=== PATIENT | female | born 1990 | race Two or more races ===

== ENCOUNTER 2025-03-14 07:58 | Inpatient (IN) ==
[2025-03-14] MEDS ORDERED: LIDOCAINE 1% LOCAL 20 ML VIAL INFIL PRN (08:16)
[2025-03-14] MEDS ORDERED: ACETAMINOPHEN 500 MG TAB PO PRN (08:16)
[2025-03-14] MEDS ORDERED: CALCIUM CARBONATE 500 MG CHEWABLE TAB PO PRN ×2 (08:16→23:57)
[2025-03-14] MEDS ORDERED: OXYTOCIN 30 UNITS/NSS 30 UNITS/500 ML BAG IV PRN (08:16)
[2025-03-14] MEDS: LACTATED RINGER'S 1,000 ML IV PRN (08:57)
[2025-03-14] MEDS: PENICILLIN GK 6 MU in DEXTROSE 5% 250 ML IV STA (08:59)
[2025-03-14 09:03] LABS: Hematocrit (blood only) 36.1 % (37.0-47.0); Hemoglobin 12.1 g/dl (12.0-16.0); Mean Corpuscular Hemoglobin 28.9 pg (25.0-34.0); Mean Corpuscular Volume 86.4 fL (80.0-100.0); Platelet Count 269 K/uL (130-400); RDW Standard Deviation 47.0 fL (36.4-46.3); Red Blood Count 4.18 M/uL (4.20-5.40); White Blood Count 15.45 K/ul (4.8-10.8)
[2025-03-14] MEDS: OXYTOCIN 30 UNITS/NSS 30 UNITS/500 ML BAG IV PRN (10:00)
--- NOTE | 2025-03-14 10:29 | History & Physical Report ---
Date of Service March 14, 2025 Assessment & Plan (1) Encounter for induction of labor: Plan: Patient appears stable. Ordered Pitocin to begin induction. Will continue to monitor. (2) Group B streptococcal infection during : Plan: Patient stated she was positive with GBS. Ordered penicillin. Admission and Anticipated Discharge Date Admission Date: March 14, 2025 History of Present Illness Chief Complaint: Induction of Labor Primary Care Provider: Lilia Petty MD Patient presents into the hospital for induction of labor. 34 yo at 40w5d admitted for IOL for postdates. Patient states that last night after her folate bulb was taken out, she was having contractions with 4-5 minute intervals but went away. Today she feels like she is having contractions sometimes. Patient admits to movement. Patient has not had any fluid loss nor bloody show. Patient states she has been having regular care Denies fever, chills, sweats, Headache, CP, SOB, dysuria, breast pain. GBS pos, RH+ Allergies Allergy/AdvReac Type Severity Reaction Status Date / Time No Known Allergies Allergy Verified 03/13/25 11:12 Home Medications Medication Instructions Recorded Confirmed Type ferrous sulfate 325 mg (65 mg 325 mg PO DAILY 04/07/24 03/14/25 History iron) tablet (Feosol) 21-iron fu-folic acid 1 tab PO DAILY 08/15/24 03/13/25 History [ Complete] Patient History Medical History (Updated 03/14/25 @ 10:26 by Epi Sanchez DO) Fibroadenoma of breast L Anemia History of chicken pox Dizzy spells Atypical chest pain Surgical History Status post surgery cyst removed from under armpit S/P breast biopsy L breast fibroadenoma Family History Mother Arthritis Hypertension Denies family history of Ovarian cancer Breast cancer Colorectal cancer Social History Smoking Status: Never smoker Do You Dip or Chew Tobacco: No; Hx Alcohol Use: No Hx Substance Use: No Preferred Language: Setswana Communication Ability: Effective Coin Machine Operator Required: No Beliefs That Will Affect Care: None marital status: marital status details: Krissy (27) [phone] Current Living Situation: Spouse Current Living Situation Comment: lives with spouse current occupational status: student current occupation: grad student [employer] Other Information That Helps Us Care for You: No Feels Safe at Home: Yes Safety Concerns: Feels Safe At This Time Assistive Devices: None Review of Systems as per Subjective HPI Physical Exam Constitutional: WD/WN, vitals as above Respiratory: normal respiratory effort, lungs clear to auscultation Cardiovascular: Rate/Rhythm: regular rate and regular rhythm Heart Sounds: normal S1 and normal S2; no murmur Gastrointestinal (Abdomen): Percussion/Palpation: abdomen nontender Skin: no rashes, warm and dry Psychiatric: Eye Contact: good eye contact Speech: normal rate/rhythm/volume of speech Thought Process: linear/logical thought process Results & Data Vital Signs (Past 12 Hours) Vital Signs Temp Pulse Resp BP 03/14/25 10:02 97 H 03/14/25 10:02 127/73 03/14/25 08:15 36.6 C 112 H 20 128/71 03/14/25 08:11 36.6 C 112 H 20 128/71 Laboratory Results 03/14/25 Range/Units 08:44 WBC 15.45 H (4.8-10.8) K/ul RBC 4.18 L (4.20-5.40) M/uL Hgb 12.1 (12.0-16.0) g/dl Hct 36.1 L (37.0-47.0) % MCV 86.4 (80.0-100.0) fL MCH 28.9 (25.0-34.0) pg MCHC 33.5 (32.0-36.0) g/dL RDW Std Deviation 47.0 H (36.4-46.3) fL RDW Coeff of Alfredo 14.8 H (11.5-14.5) % Plt Count 269 (130-400) K/uL MPV 9.6 (9.4-12.4) fL Treponema pallidum Ab Negative (Negative) Medications Administered Pitocin protocol. Penicillin Supervising Physician Co-Signing Physician Notes Resident Physician Supervision Note: I was present with Dr. Sanchez during the history and exam. I discussed the case with the resident and agree with the findings and plan as documented in the note. Any exceptions or clarifications are listed here: [None] Documented By: Raissa Hernandez, DO
[2025-03-14] MEDS: PENICILLIN GK 3 MU in DEXTROSE 5% 100 ML IV PRN (13:01)
[2025-03-14] MEDS ORDERED: ROPIVACAINE 0.5% PF 5 MG/ML 20 ML VIAL EPI PRN (17:34)
[2025-03-14] MEDS ORDERED: BUPIVACAINE 0.25% PF 30 ML VIAL EPI PRN (17:34)
[2025-03-14] MEDS ORDERED: NALBUPHINE HCL INJ 10 MG/ML AMP IV PRN ×2 (17:34→23:07)
[2025-03-14] MEDS ORDERED: BUPIVACAINE 0.25% PF 30 ML VIAL EPI STA (17:34)
[2025-03-14] MEDS ORDERED: LIDOCAINE 2% MPF LOCAL 5 ML VIAL EPI PRN (17:34)
[2025-03-14] MEDS ORDERED: diphenhydrAMINE 50 MG/ML VIAL IV PRN ×2 (17:34→23:07)
[2025-03-14] MEDS ORDERED: NALOXONE HCL 0.4 MG/1 ML VIAL/CARP IV PRN ×2 (17:34→23:07)
[2025-03-14] MEDS ORDERED: fentANYL 2 MCG/ML BUPIVacaine 0.125%-NSS 100ML BAG EPI PRN (17:34)
[2025-03-14] MEDS ORDERED: LIDOCAINE 2%/EPINEPHRINE 1:200,000 20 ML PF EPI STA (17:34)
[2025-03-14] MEDS ORDERED: NALOXONE HCL 1 MG in SODIUM CHLORIDE 0.9% 1,000 ML IV PRN ×2 (17:34→23:07)
[2025-03-14] MEDS ORDERED: SODIUM CHLORIDE 0.9% PF INJ 10 ML VIAL EPI STA (17:34)
[2025-03-14] MEDS ORDERED: SODIUM CHLORIDE 0.9% PF INJ 10 ML VIAL EPI PRN (17:34)
--- NOTE | 2025-03-14 17:42 | Anesthesiology Consultation ---
Date of Service March 14, 2025 Assessment & Plan Chart Review Chart Review: Patient NOT seen in Pre Admission Testing and Acceptable Risk for Labor Epidural Consults Requested none ASA ASA2 Proposed Anesthesia Anesthesia Type: Labor Epidural Risk / Benefits Reviewed With: PT / POA / Parent / Guardian, Accepts Plan and Informed Consent Obtained History Height/Weight Height: 5 ft 5 in Weight: 91.172 kg Allergies Allergy/AdvReac Type Severity Reaction Status Date / Time No Known Allergies Allergy Verified 03/13/25 11:12 Medications Home Medications Medication Instructions Recorded Confirmed Last Taken ferrous sulfate 325 mg (65 mg 325 mg PO DAILY 04/07/24 03/14/25 03/12/25 12:00 iron) tablet (Feosol) 21-iron fu-folic acid 1 tab PO DAILY 08/15/24 03/13/25 03/12/25 23:00 [ Complete] Active Medications Generic Name Dose Route Start Last Admin Trade Name Freq PRN Reason Stop Dose Admin Lactated Ringer's 1,000 mls @ 125 mls/hr 03/14/25 08:16 03/14/25 17:44 Lr IV 03/16/25 08:15 999 mls/hr .Q8H PRN Titration L&D Protocol Protocol Penicillin G Potassium 3 mu/ 106 mls @ 100 mls/hr 03/14/25 11:17 03/14/25 17:44 Dextrose IV 03/24/25 11:16 100 mls/hr Q4H PRN Administration GBS(+) Until Delivery Oxytocin 30 units in 500 mls @ 11 mls/hr 03/14/25 09:35 03/14/25 12:30 Pitocin 30 Units/Nss IV 03/16/25 09:34 0.66 units/hr .Q24H PRN 11 mls/hr Labor Induction/Augmentation Titration Protocol 0.66 UNITS/HR NPO Date Last Intake of Fluids: 03/14/25 Time Last Intake of Fluids: 17:00 Date Last Intake of Solids: 03/14/25 Time Last Intake of Solids: 06:30 Past Medical History Medical History Fibroadenoma of breast L Anemia History of chicken pox Dizzy spells Atypical chest pain Exercise / Class Metabolic Activity 1 > 8 Run/Swim/Ski/Tennis Past Family History Family History Mother Arthritis Hypertension Denies family history of Ovarian cancer Breast cancer Colorectal cancer Past Surgical History Surgical History Status post surgery cyst removed from under armpit S/P breast biopsy L breast fibroadenoma Past Anesthesia History No Hx of Anesthesia Complications and No Family Hx of Anesthesia Complications History of PONV No Hx of PONV and No Hx of Motion Sickness Social History Smoking Status: Never smoker Do You Dip or Chew Tobacco: No Hx Alcohol Use: No Hx Substance Use: No Review of Systems ROS Unobtainable: All systems reviewed & are unremarkable except as noted in HPI & below Physical Exam Vital Signs Last Vital Signs Temp 37.0 C 03/14/25 15:22 Pulse 82 03/14/25 17:37 Resp 20 03/14/25 15:22 BP 135/99 03/14/25 17:37 Pulse Ox 100 03/14/25 17:37 ENMT Mouth: no TMJ abnormality Thyromental Distance: > or= 3.5 Finger Breadths Mallampati Class: II Neck normal visual inspection and trachea midline; neck extension not limited Respiratory normal respiratory effort Auscultation: lungs clear to auscultation bilaterally Cardiovascular Rate/Rhythm: regular rate and regular rhythm Heart Sounds: no murmur Musculoskeletal Spine: normal cervical ROM Extremities: full ROM of extremities Neurologic moves all extremities Psychiatric Orientation: alert and oriented x 3 Testing Laboratory Results 03/14/25 08:44
[2025-03-14] MEDS: BUPIVACAINE 0.25% PF 30 ML VIAL ONE (18:00)
[2025-03-14] MEDS: LIDOCAINE 2%/EPINEPHRINE 1:200,000 20 ML PF ONE (18:00)
[2025-03-14] MEDS: fentANYL 2 MCG/ML BUPIVacaine 0.125%-NSS 100ML BAG ONE (18:02)
[2025-03-14] MEDS: ONDANSETRON INJ 2 MG/ML 2 ML VIAL IV PRN (18:47)
[2025-03-14] MEDS: SODIUM CHLORIDE 0.9% PF INJ 10 ML VIAL ONE (18:50)
--- NOTE | 2025-03-14 22:00 | Labor Progress Brief Note ---
Date of Service March 14, 2025 Subjective Patient continued pitocin Assessment & Plan Admission and Anticipated Discharge Date Admission Date: March 14, 2025 Results & Data Vital Signs (Past 12 Hours) Vital Signs Temp Pulse Resp BP Pulse Ox O2 Del Method 03/14/25 21:57 100 03/14/25 21:57 104 H 03/14/25 21:52 100 03/14/25 21:52 106 H 03/14/25 21:47 98 03/14/25 21:47 104 H 03/14/25 21:42 100 03/14/25 21:42 107 H 03/14/25 21:37 100 03/14/25 21:37 105 H 03/14/25 21:37 99 H 03/14/25 21:37 113/65 03/14/25 21:32 98 03/14/25 21:32 104 H 03/14/25 21:27 99 03/14/25 21:27 116 H 03/14/25 21:22 98 03/14/25 21:22 92 H 03/14/25 21:17 99 03/14/25 21:17 95 H 03/14/25 21:12 16 03/14/25 21:12 37.0 C 16 03/14/25 21:12 98 03/14/25 21:12 105 H 03/14/25 21:07 100 03/14/25 21:07 100 H 03/14/25 21:07 122/60 03/14/25 21:02 98 03/14/25 21:02 96 H 03/14/25 20:57 99 03/14/25 20:57 104 H 03/14/25 20:52 100 03/14/25 20:52 99 H 03/14/25 20:52 98 H 03/14/25 20:52 120/69 03/14/25 20:47 100 03/14/25 20:47 108 H 03/14/25 20:42 100 03/14/25 20:42 113 H 03/14/25 20:38 98 H 03/14/25 20:38 116/64 03/14/25 20:37 100 03/14/25 20:37 99 H 03/14/25 20:32 100 03/14/25 20:32 88 03/14/25 20:27 100 03/14/25 20:27 90 03/14/25 20:23 92 H 03/14/25 20:23 112/64 03/14/25 20:22 100 03/14/25 20:22 85 03/14/25 20:17 100 03/14/25 20:17 88 03/14/25 20:15 90 03/14/25 20:15 107 H 03/14/25 20:12 99 03/14/25 20:12 93 H 03/14/25 20:09 108 H 03/14/25 20:09 122/89 03/14/25 20:07 100 03/14/25 20:07 112 H 03/14/25 20:02 100 03/14/25 20:02 98 H 03/14/25 19:57 100 03/14/25 19:57 105 H 03/14/25 19:52 100 03/14/25 19:52 106 H 03/14/25 19:52 100 H 03/14/25 19:52 122/61 03/14/25 19:47 100 03/14/25 19:47 99 H 03/14/25 19:42 99 03/14/25 19:42 95 H 03/14/25 19:37 99 03/14/25 19:37 86 03/14/25 19:37 86 03/14/25 19:37 125/64 03/14/25 19:32 100 03/14/25 19:32 89 03/14/25 19:27 98 03/14/25 19:27 98 H 03/14/25 19:22 100 03/14/25 19:22 93 H 03/14/25 19:22 119/58 L 03/14/25 19:17 99 03/14/25 19:17 90 03/14/25 19:15 Room Air 03/14/25 19:12 100 03/14/25 19:12 100 H 03/14/25 19:10 18 03/14/25 19:10 36.7 C 18 03/14/25 19:07 100 03/14/25 19:07 90 03/14/25 19:06 97 H 03/14/25 19:06 126/64 03/14/25 19:02 100 03/14/25 19:02 99 H 03/14/25 19:02 119/61 03/14/25 18:58 82 03/14/25 18:58 125/58 L 03/14/25 18:57 100 03/14/25 18:57 85 03/14/25 18:54 86 03/14/25 18:54 133/60 03/14/25 18:52 99 03/14/25 18:52 99 H 03/14/25 18:51 106 H 03/14/25 18:51 91/51 L 03/14/25 18:49 90 03/14/25 18:49 107/51 L 03/14/25 18:47 100 03/14/25 18:47 92 H 03/14/25 18:46 85 03/14/25 18:46 115/55 L 03/14/25 18:45 99 H 03/14/25 18:45 102/56 L 03/14/25 18:43 103 H 03/14/25 18:43 97/53 L 03/14/25 18:42 100 03/14/25 18:42 101 H 03/14/25 18:41 108 H 03/14/25 18:41 93/50 L 03/14/25 18:40 20 03/14/25 18:40 36.8 C 20 03/14/25 18:39 118 H 03/14/25 18:39 100/54 L 03/14/25 18:37 100 03/14/25 18:37 104 H 03/14/25 18:37 106 H 03/14/25 18:37 103/54 L 03/14/25 18:35 75 03/14/25 18:35 109/59 L 03/14/25 18:33 88 03/14/25 18:33 95/55 L 03/14/25 18:32 100 03/14/25 18:32 90 03/14/25 18:31 87 03/14/25 18:31 105/55 L 03/14/25 18:29 95 H 03/14/25 18:29 95/49 L 03/14/25 18:27 100 03/14/25 18:27 98 H 03/14/25 18:27 93 H 03/14/25 18:27 96/50 L 03/14/25 18:25 121 H 03/14/25 18:25 92/50 L 03/14/25 18:24 113 H 03/14/25 18:24 107/54 L 03/14/25 18:22 100 03/14/25 18:22 95 H 03/14/25 18:22 120/62 03/14/25 18:20 94 H 03/14/25 18:20 82/43 L 03/14/25 18:19 86 03/14/25 18:19 79/41 L 03/14/25 18:18 82 03/14/25 18:18 78/41 L 03/14/25 18:17 100 03/14/25 18:17 83 03/14/25 18:14 84 03/14/25 18:14 94/52 L 03/14/25 18:13 88 03/14/25 18:13 98/49 L 03/14/25 18:12 100 03/14/25 18:12 86 03/14/25 18:12 104/51 L 03/14/25 18:08 94 H 03/14/25 18:08 102/47 L 03/14/25 18:07 100 03/14/25 18:07 93 H 03/14/25 18:07 96 H 03/14/25 18:07 102/55 L 03/14/25 18:05 94 H 03/14/25 18:05 106/55 L 03/14/25 18:03 107 H 03/14/25 18:03 110/54 L 03/14/25 18:02 100 03/14/25 18:02 104 H 03/14/25 18:01 93 H 03/14/25 18:01 129/67 03/14/25 17:59 96 H 03/14/25 17:59 137/65 03/14/25 17:57 100 03/14/25 17:57 100 H 03/14/25 17:57 100 H 03/14/25 17:57 136/81 03/14/25 17:55 90 03/14/25 17:55 134/84 03/14/25 17:52 100 03/14/25 17:52 88 03/14/25 17:47 100 03/14/25 17:47 87 03/14/25 17:42 100 03/14/25 17:42 88 03/14/25 17:37 100 03/14/25 17:37 82 03/14/25 17:37 135/99 03/14/25 16:26 82 03/14/25 16:26 130/75 03/14/25 15:22 20 03/14/25 15:22 37.0 C 20 03/14/25 15:22 78 03/14/25 15:22 134/73 03/14/25 13:58 85 03/14/25 13:58 119/74 03/14/25 13:00 90 03/14/25 13:00 122/74 03/14/25 12:03 89 03/14/25 12:03 118/70 03/14/25 11:18 85 03/14/25 11:18 138/65 03/14/25 10:02 97 H 03/14/25 10:02 127/73 Coding
--- NOTE | 2025-03-14 22:04 | History & Physical Bridge Note ---
Date of Service March 14, 2025 History & Physical Bridge Note I have examined the patient, reviewed the History & Physical and in the interval since the performance of the History & Physical I have noted the following changes of clinical significance: Patient continued pitocin up to 17, Arom clear fluid, rec'd epidural, continued pitocin. Then needed to stop pitocin d/t tachycardia, minimal variability. No cervical change since this morning. Discussed with patient - remote from delivery, no cervical change throughout the day, and now intolerance to labor - would advise proceed with section. She is agreeable.
[2025-03-14] MEDS ORDERED: DEXAMETHASONE SOD INJ 4 MG/ML VIAL ONE (22:09)
[2025-03-14] MEDS ORDERED: ONDANSETRON INJ 2 MG/ML 2 ML VIAL ONE (22:09)
[2025-03-14] MEDS ORDERED: PHENYLEPHRINE HCL 25 MG/250 ML NSS IV ONE (22:09)
[2025-03-14] MEDS ORDERED: LIDOCAINE 2%/EPINEPHRINE 1:200,000 20 ML PF ONE (22:09)
[2025-03-14] MEDS ORDERED: METOCLOPRAMIDE HCL INJ 5 MG/ML 2 ML VIAL ONE (22:15)
--- NOTE | 2025-03-14 22:22 | Communication Note ---
Date of Service: March 14, 2025 c.s called for intolerance of labor. epidural in place and working well. Will dose epidural. ASA2E
[2025-03-14] MEDS ORDERED: MoRPHine SULFATE PF 1 MG/ML 10 ML AMP/VIAL ONE (22:27)
[2025-03-14] MEDS ORDERED: OXYTOCIN 10 UNITS/ML VIAL ONE (22:28)
[2025-03-14] MEDS: CITRIC ACID/SODIUM CITRATE 15 ML UDC PO ONE (22:31)
[2025-03-14] MEDS: AZITHROMYCIN 500 MG/255 ML BAG IV ONE (22:35)
[2025-03-14] MEDS ORDERED: DROPERIDOL 5 MG/2 ML VIAL IV PRN (23:07)
[2025-03-14] MEDS ORDERED: ONDANSETRON INJ 2 MG/ML 2 ML VIAL IV PRN (23:07)
[2025-03-14] MEDS ORDERED: NALOXONE HCL 0.08 MG in SYRINGE 1.8 ML IV PRN (23:07)
[2025-03-14] MEDS ORDERED: HYDROmorphone INJ 0.5 MG/0.5 ML SYR IV PRN (23:07)
[2025-03-14] MEDS ORDERED: METOCLOPRAMIDE HCL 20 MG in SODIUM CHLORIDE 0.9% 50 ML IV PRN (23:07)
[2025-03-14] MEDS ORDERED: PROMETHAZINE 6.25 MG/50.25 ML BAG IV PRN (23:07)
[2025-03-14] MEDS ORDERED: MoRPHine SULFATE PF 1 MG/ML 10 ML AMP/VIAL INT SPINAL ONE (23:07)
[2025-03-14] MEDS ORDERED: MEPERIDINE HCL 25 MG/ML CARP/VIAL IV PRN (23:07)
[2025-03-14] MEDS ORDERED: LACTATED RINGER'S 500 ML IV PRN (23:07)
[2025-03-14] MEDS ORDERED: NO NARCOTICS OR SEDATIVES SCH (23:15)
[2025-03-14] MEDS ORDERED: SODIUM CHLORIDE 0.9% 1,000 ML IV SCH (23:15)
[2025-03-14] MEDS ORDERED: DC INTRASPINAL MORPHINE SCH (23:15)
--- NOTE | 2025-03-14 23:51 | Operative Report ---
Post Operative Report Pre & Post Diagnosis Operation Date: 03/14/25 22:15 Pre: Postdates induction of labor, intolerance to labor and failure to progress Post: same I identified the patient and participated in the time-out.: Yes Procedure Operation Date: 03/14/25 22:15 Actual Procedures p Primary Low Transverse Section in LD@ 2259 - Raissa Hernandez DO Surgeon Raissa Hernandez, Chemical Preparer R Joni RN Quantitative Blood Loss (QBL) 370 Findings Consistent with Post-Op Diagnosis Viable female , Apgars 8/9. Weight 7#15oz. Normal appearing uterus, tubes, ovaries. Specimens placenta, cord blood, cord gas Drains moise, clear yellow Anesthesia Type Labor Epidural Complications none Disposition Accompanied Patient To Recovery: Yes Disposition: L&D Indications 34yo @ 40 5/7, IOL for postdates, developed tachycardia and minimal variability, no progression beyond 5cm dilation Description of Procedure The patient was seen in her labor and delivery room, risks benefits and alternatives to surgery were reviewed. Informed consent obtained. Questions were answered. She was taken to the operating room, spinal anesthesia was administered. She was then prepared and draped in the usual sterile fashion in the supine position with a leftward tilt. Timeout was confirmed. A Pfannenstiel skin incision was made with a scalpel, and carried through to the underlying layer of fascia. Fascia was nicked at midline, and this incision was extended bilaterally. The superior aspect of the fascial incision was grasped with Marko clamps x2, elevated off the underlying rectus abdominis muscles, and dissected sharply and bluntly. In similar fashion, the inferior aspect of the fascial incision was dissected. The rectus abdominis muscles were , and the peritoneum was entered bluntly digitally. This was extended bilaterally. The bladder flap was taken down carefully using Metzenbaum scissors. Using a new scalpel, a low transverse uterine incision was created. No fluid noted. The was delivered from a cephalic presentation. The head delivered, followed by shoulders and body. Spontaneous cry on the field. The cord was doubly clamped and cut, and the was handed off to the waiting assistant media buyer. A segment was retained for cord gases. Cord blood was obtained. The placenta was delivered spontaneously intact. The uterus was exteriorized, and cleared of all clots and debris. The hysterotomy incision was reapproximated using 0 Vicryl in a running locked stitch. A second layer of the same suture was used to imbricate the incision. Posterior uterus was evaluated and normal. The uterus was returned to the abdomen, and gutters were cleared of clots and debris. Excellent hemostasis was observed. The fascial incision was reapproximated using 0 Vicryl in a running stitch. The subcutaneous tissue was irrigated, and reapproximated using 2-0 plain gut in a running stitch. The skin was reapproximated using 4-0 Vicryl in a running subcuticular stitch. Steri-Strips and a bandage were applied. The patient tolerated the procedure well, and will be taken to the recovery area in stable and good condition. I attest to the content of the Intraoperative Record and any orders documented therein. Any exceptions are noted below. OB Procedure Charges 23601
[2025-03-14] MEDS ORDERED: SENNA 8.6 MG TAB PO PRN (23:57)
[2025-03-14] MEDS ORDERED: HYDROCORTISONE ACETATE 25 MG SUPP PR PRN (23:57)
[2025-03-14] MEDS ORDERED: BENZOCAINE 20% SPRY 85 APPLN/85 GM CAN EXT PRN (23:57)
[2025-03-14] MEDS ORDERED: MAGNESIUM HYDROXIDE SUSP 30 ML UDC PO PRN (23:57)
--- NOTE | 2025-03-15 00:04 | Anesthesia Procedure Note ---
Date of Service March 15, 2025 Anesthesia Post Epidural Note Vital Signs Vital Signs: Temp Pulse Resp BP Pulse Ox O2 Del Method 37.0 C 118 H 16 126/59 L 99 Room Air 03/14/25 21:12 03/14/25 23:59 03/14/25 21:12 03/14/25 23:55 03/14/25 23:59 03/14/25 19:15 Notes Mental Status: alert / awake / arousable and participated in evaluation Nausea / Vomiting: adequately controlled Pain: adequately controlled Airway Patency, RR, SpO2: stable & adequate BP & HR: stable & adequate Hydration State: stable & adequate Neuraxial Anesthesia: was administered and sensory block is resolving Anesthetic Complications: no major complications apparent Epidural: Removed without complications and With tip intact
--- NOTE | 2025-03-15 00:04 | Anesthesiology Progress Note ---
Date of Service March 15, 2025 Anesthesia Post Procedure Vital Signs Vital Signs: Temp Pulse Resp BP Pulse Ox O2 Del Method 03/14/25 23:59 99 03/14/25 23:59 118 H 03/14/25 23:55 103 H 03/14/25 23:55 126/59 L 03/14/25 23:54 100 03/14/25 23:54 101 H 03/14/25 23:49 99 03/14/25 23:49 104 H 03/14/25 23:45 105 H 03/14/25 23:45 116/63 03/14/25 23:44 100 03/14/25 23:44 107 H 03/14/25 22:42 126 H 03/14/25 22:42 122/86 03/14/25 22:32 100 03/14/25 22:32 109 H 03/14/25 22:27 100 03/14/25 22:27 99 H 03/14/25 22:23 102 H 03/14/25 22:23 116/75 03/14/25 22:22 100 03/14/25 22:22 101 H 03/14/25 22:17 100 03/14/25 22:17 104 H 03/14/25 22:12 100 03/14/25 22:12 106 H 03/14/25 22:07 100 03/14/25 22:07 108 H 03/14/25 22:07 100 H 03/14/25 22:07 127/63 03/14/25 22:02 100 03/14/25 22:02 102 H 03/14/25 21:57 100 03/14/25 21:57 104 H 03/14/25 21:52 100 03/14/25 21:52 106 H 03/14/25 21:47 98 03/14/25 21:47 104 H 03/14/25 21:42 100 03/14/25 21:42 107 H 03/14/25 21:37 100 03/14/25 21:37 105 H 03/14/25 21:37 99 H 03/14/25 21:37 113/65 03/14/25 21:32 98 03/14/25 21:32 104 H 03/14/25 21:27 99 03/14/25 21:27 116 H 03/14/25 21:22 98 03/14/25 21:22 92 H 03/14/25 21:17 99 03/14/25 21:17 95 H 03/14/25 21:12 16 03/14/25 21:12 37.0 C 16 03/14/25 21:12 98 03/14/25 21:12 105 H 03/14/25 21:07 100 03/14/25 21:07 100 H 03/14/25 21:07 122/60 03/14/25 21:02 98 03/14/25 21:02 96 H 03/14/25 20:57 99 03/14/25 20:57 104 H 03/14/25 20:52 100 03/14/25 20:52 99 H 03/14/25 20:52 98 H 03/14/25 20:52 120/69 03/14/25 20:47 100 03/14/25 20:47 108 H 03/14/25 20:42 100 03/14/25 20:42 113 H 03/14/25 20:38 98 H 03/14/25 20:38 116/64 03/14/25 20:37 100 03/14/25 20:37 99 H 03/14/25 20:32 100 03/14/25 20:32 88 03/14/25 20:27 100 03/14/25 20:27 90 03/14/25 20:23 92 H 03/14/25 20:23 112/64 03/14/25 20:22 100 03/14/25 20:22 85 03/14/25 20:17 100 03/14/25 20:17 88 03/14/25 20:15 90 03/14/25 20:15 107 H 03/14/25 20:12 99 03/14/25 20:12 93 H 03/14/25 20:09 108 H 03/14/25 20:09 122/89 03/14/25 20:07 100 03/14/25 20:07 112 H 03/14/25 20:02 100 03/14/25 20:02 98 H 03/14/25 19:57 100 03/14/25 19:57 105 H 03/14/25 19:52 100 03/14/25 19:52 106 H 03/14/25 19:52 100 H 03/14/25 19:52 122/61 08/05/25 19:47 100 03/14/25 19:47 99 H 03/14/25 19:42 99 03/14/25 19:42 95 H 03/14/25 19:37 99 03/14/25 19:37 86 03/14/25 19:37 86 03/14/25 19:37 125/64 03/14/25 19:32 100 03/14/25 19:32 89 03/14/25 19:27 98 03/14/25 19:27 98 H 03/14/25 19:22 100 03/14/25 19:22 93 H 03/14/25 19:22 119/58 L 03/14/25 19:17 99 03/14/25 19:17 90 03/14/25 19:15 Room Air 03/14/25 19:12 100 03/14/25 19:12 100 H 03/14/25 19:10 18 03/14/25 19:10 36.7 C 18 03/14/25 19:07 100 03/14/25 19:07 90 03/14/25 19:06 97 H 03/14/25 19:06 126/64 03/14/25 19:02 100 03/14/25 19:02 99 H 03/14/25 19:02 119/61 03/14/25 18:58 82 03/14/25 18:58 125/58 L 03/14/25 18:57 100 03/14/25 18:57 85 03/14/25 18:54 86 03/14/25 18:54 133/60 03/14/25 18:52 99 03/14/25 18:52 99 H 03/14/25 18:51 106 H 03/14/25 18:51 91/51 L 03/14/25 18:49 90 03/14/25 18:49 107/51 L 03/14/25 18:47 100 03/14/25 18:47 92 H 03/14/25 18:46 85 03/14/25 18:46 115/55 L 03/14/25 18:45 99 H 03/14/25 18:45 102/56 L 03/14/25 18:43 103 H 03/14/25 18:43 97/53 L 03/14/25 18:42 100 03/14/25 18:42 101 H 03/14/25 18:41 108 H 03/14/25 18:41 93/50 L 03/14/25 18:40 20 03/14/25 18:40 36.8 C 20 03/14/25 18:39 118 H 03/14/25 18:39 100/54 L 03/14/25 18:37 100 03/14/25 18:37 104 H 03/14/25 18:37 106 H 03/14/25 18:37 103/54 L 03/14/25 18:35 75 03/14/25 18:35 109/59 L 03/14/25 18:33 88 03/14/25 18:33 95/55 L 03/14/25 18:32 100 03/14/25 18:32 90 03/14/25 18:31 87 03/14/25 18:31 105/55 L 03/14/25 18:29 95 H 03/14/25 18:29 95/49 L 03/14/25 18:27 100 03/14/25 18:27 98 H 03/14/25 18:27 93 H 03/14/25 18:27 96/50 L 03/14/25 18:25 121 H 03/14/25 18:25 92/50 L 03/14/25 18:24 113 H 03/14/25 18:24 107/54 L 03/14/25 18:22 100 03/14/25 18:22 95 H 03/14/25 18:22 120/62 03/14/25 18:20 94 H 03/14/25 18:20 82/43 L 03/14/25 18:19 86 03/14/25 18:19 79/41 L 03/14/25 18:18 82 03/14/25 18:18 78/41 L 03/14/25 18:17 100 03/14/25 18:17 83 03/14/25 18:14 84 03/14/25 18:14 94/52 L 03/14/25 18:13 88 03/14/25 18:13 98/49 L 03/14/25 18:12 100 03/14/25 18:12 86 03/14/25 18:12 104/51 L 03/14/25 18:08 94 H 03/14/25 18:08 102/47 L 03/14/25 18:07 100 03/14/25 18:07 93 H 03/14/25 18:07 96 H 03/14/25 18:07 102/55 L 03/14/25 18:05 94 H 03/14/25 18:05 106/55 L 03/14/25 18:03 107 H 03/14/25 18:03 110/54 L 03/14/25 18:02 100 03/14/25 18:02 104 H 03/14/25 18:01 93 H 03/14/25 18:01 129/67 03/14/25 17:59 96 H 03/14/25 17:59 137/65 03/14/25 17:57 100 03/14/25 17:57 100 H 03/14/25 17:57 100 H 03/14/25 17:57 136/81 03/14/25 17:55 90 03/14/25 17:55 134/84 03/14/25 17:52 100 03/14/25 17:52 88 03/14/25 17:47 100 03/14/25 17:47 87 03/14/25 17:42 100 03/14/25 17:42 88 03/14/25 17:37 100 03/14/25 17:37 82 03/14/25 17:37 135/99 03/14/25 16:26 82 03/14/25 16:26 130/75 03/14/25 15:22 20 03/14/25 15:22 37.0 C 20 03/14/25 15:22 78 03/14/25 15:22 134/73 03/14/25 13:58 85 03/14/25 13:58 119/74 03/14/25 13:00 90 03/14/25 13:00 122/74 03/14/25 12:03 89 03/14/25 12:03 118/70 03/14/25 11:18 85 03/14/25 11:18 138/65 03/14/25 10:02 97 H 03/14/25 10:02 127/73 03/14/25 08:15 36.6 C 112 H 20 128/71 03/14/25 08:11 36.6 C 112 H 20 128/71 Transfer of Care Handoff Completed per policy Notes Mental Status: alert / awake / arousable Patient Amnestic to Procedure: Yes Nausea / Vomiting: adequately controlled Pain: adequately controlled Airway Patency, RR, SpO2: stable & adequate BP & HR: stable & adequate Hydration State: stable & adequate Neuraxial Anesthesia: was administered and sensory block is resolving Anesthetic Complications: no major complications apparent and Pt Satisfied with anesthetic care
[2025-03-15 00:08] LABS: Base Excess Cord Arterial Bld -3.8 mEq/L (-9-1.8); Base Excess Cord Venous Blood -1.8 mEq/L (-7.7-1.9); CO2 Cord Arterial Blood 70 mmHg (39.1-73.5); Cord Venous Blood PO2 28 mmHg (14.1-43.3); HCO3 Cord Arterial Blood 26 mmol/L (19.7-28.5); O2 Saturation Cord Venous Bld < 60.0 % (<68); PO2 Cord Arterial Blood < 20 mmHg (4.1-31.7); pH Cord Arterial Blood 7.18 (7.1-7.38)
[2025-03-15] MEDS: KETOROLAC 30 MG/ML VIAL IV SCH (00:21)
[2025-03-15] MEDS: OXYTOCIN 20 UNITS/LR 1,002 ML IV SCH (00:24)
[2025-03-15] MEDS: DIPHTHER/TETAN/PERTUS Vaccine (Tdap, Adol/Adult) 0.5mL IM ONE (02:42)
[2025-03-15] MEDS: ACETAMINOPHEN 325 MG TAB PO SCH (05:55)
--- NOTE | 2025-03-15 05:57 | Obstetrical Progress Note ---
Date of Service March 15, 2025 Assessment & Plan (1) care and examination: Plan: Patient is currently vomiting and having nausea. Will continue to monitor. (2) Group B streptococcal infection during : Plan: Patient stated she was positive with GBS. Ordered penicillin during labor Admission and Anticipated Discharge Date Admission Date: March 14, 2025 Supervising Physician Co-Signing Physician Notes Resident Physician Supervision Note: I was present with Dr. Sanchez during the history and exam. I discussed the case with the resident and agree with the findings and plan as documented in the note. Any exceptions or clarifications are listed here: POD#1 continue routine postop care. Documented By: Raissa Hernandez, Subjective 34 yo post- day 6 hours s/p [] Ambulation: has not walked yet Voiding: still has cath in Passing Gas:: Yes Diet Tolerance:: has not eaten yet Feeding Type:: breast feeding Current Pain Level:improving Vomited in the room during visit. But is currently feeding baby. Denies fevers/chills, BRADSHAW, CP/palp, SOB/wheeze/cough, breast pain/dschrg, Patient admits to nausea and vomiting. Patient also admitted to feeling lightheaded when changing her position to sitting up. Review of Systems Review of Systems: as per Subjective HPI Physical Exam Constitutional: WD/WN, vitals as above Respiratory: normal respiratory effort, lungs clear to auscultation Cardiovascular: Rate/Rhythm: regular rate and regular rhythm Heart Sounds: normal S1 and normal S2; no murmur Gastrointestinal (Abdomen): Percussion/Palpation: + abdomen tender and abdomen soft Uterus was @ the level of the umbilicus. Incision was covered with surgical patch. Skin: no rashes, warm and dry Psychiatric: Eye Contact: good eye contact Speech: normal rate/rhythm/volume of speech Thought Process: linear/logical thought process Results & Data Vital Signs (Past 12 Hours) Vital Signs Temp Pulse Pulse Resp BP BP Pulse Ox 03/15/25 04:40 37.0 C 110 H 16 120/74 98 03/15/25 02:00 18 98 03/15/25 02:00 36.7 C 106 H 18 136/77 98 03/15/25 01:45 18 03/15/25 01:45 110 H 140/64 03/15/25 01:44 107 H 100 03/15/25 01:39 114 H 97 03/15/25 01:35 103 H 133/58 L 03/15/25 01:34 111 H 100 03/15/25 01:29 108 H 100 03/15/25 01:25 97 H 146/72 H 03/15/25 01:24 94 H 100 03/15/25 01:19 102 H 100 03/15/25 01:15 18 03/15/25 01:15 115 H 136/61 03/15/25 01:14 111 H 100 03/15/25 01:09 119 H 100 03/15/25 01:05 104 H 145/63 H 03/15/25 01:04 100 H 100 03/15/25 00:59 109 H 100 03/15/25 00:55 92 H 118/56 L 03/15/25 00:54 97 H 100 03/15/25 00:49 100 H 100 03/15/25 00:45 16 03/15/25 00:45 16 03/15/25 00:45 109 H 119/58 L 03/15/25 00:44 116 H 96 03/15/25 00:39 120 H 99 03/15/25 00:35 16 03/15/25 00:35 120 H 144/67 H 03/15/25 00:34 116 H 99 03/15/25 00:29 120 H 99 03/15/25 00:28 120 H 154/89 H 03/15/25 00:25 18 03/15/25 00:25 16 03/15/25 00:24 120 H 99 03/15/25 00:19 124 H 98 03/15/25 00:15 16 03/15/25 00:15 126 H 129/60 03/15/25 00:14 124 H 98 03/15/25 00:09 115 H 98 03/15/25 00:05 18 03/15/25 00:05 116 H 123/58 L 03/15/25 00:04 117 H 99 03/14/25 23:59 99 03/14/25 23:59 118 H 03/14/25 23:55 18 03/14/25 23:55 103 H 03/14/25 23:55 126/59 L 03/14/25 23:54 100 03/14/25 23:54 101 H 08/05/25 23:49 99 03/14/25 23:49 104 H 03/14/25 23:45 36.9 C 16 98 03/14/25 23:45 105 H 03/14/25 23:45 116/63 03/14/25 23:44 100 03/14/25 23:44 107 H 03/14/25 22:42 126 H 03/14/25 22:42 122/86 03/14/25 22:32 100 03/14/25 22:32 109 H 03/14/25 22:27 100 03/14/25 22:27 99 H 03/14/25 22:23 102 H 03/14/25 22:23 116/75 03/14/25 22:22 100 03/14/25 22:22 101 H 03/14/25 22:17 100 03/14/25 22:17 104 H 03/14/25 22:12 100 03/14/25 22:12 106 H 03/14/25 22:07 100 03/14/25 22:07 108 H 03/14/25 22:07 100 H 03/14/25 22:07 127/63 03/14/25 22:02 100 03/14/25 22:02 102 H 03/14/25 21:57 100 03/14/25 21:57 104 H 03/14/25 21:52 100 03/14/25 21:52 106 H 03/14/25 21:47 98 03/14/25 21:47 104 H 03/14/25 21:42 100 03/14/25 21:42 107 H 03/14/25 21:37 100 03/14/25 21:37 105 H 03/14/25 21:37 99 H 03/14/25 21:37 113/65 03/14/25 21:32 98 03/14/25 21:32 104 H 03/14/25 21:27 99 03/14/25 21:27 116 H 03/14/25 21:22 98 03/14/25 21:22 92 H 03/14/25 21:17 99 03/14/25 21:17 95 H 03/14/25 21:12 16 03/14/25 21:12 37.0 C 16 03/14/25 21:12 98 03/14/25 21:12 105 H 03/14/25 21:07 100 03/14/25 21:07 100 H 03/14/25 21:07 122/60 03/14/25 21:02 98 03/14/25 21:02 96 H 03/14/25 20:57 99 03/14/25 20:57 104 H 03/14/25 20:52 100 03/14/25 20:52 99 H 03/14/25 20:52 98 H 03/14/25 20:52 120/69 03/14/25 20:47 100 03/14/25 20:47 108 H 03/14/25 20:42 100 03/14/25 20:42 113 H 03/14/25 20:38 98 H 03/14/25 20:38 116/64 03/14/25 20:37 100 03/14/25 20:37 99 H 03/14/25 20:32 100 03/14/25 20:32 88 03/14/25 20:27 100 03/14/25 20:27 90 03/14/25 20:23 92 H 03/14/25 20:23 112/64 03/14/25 20:22 100 03/14/25 20:22 85 03/14/25 20:17 100 03/14/25 20:17 88 03/14/25 20:15 90 03/14/25 20:15 107 H 03/14/25 20:12 99 03/14/25 20:12 93 H 03/14/25 20:09 108 H 03/14/25 20:09 122/89 03/14/25 20:07 100 03/14/25 20:07 112 H 03/14/25 20:02 100 03/14/25 20:02 98 H 03/14/25 19:57 100 03/14/25 19:57 105 H 03/14/25 19:52 100 03/14/25 19:52 106 H 03/14/25 19:52 100 H 03/14/25 19:52 122/61 03/14/25 19:47 100 03/14/25 19:47 99 H 03/14/25 19:42 99 03/14/25 19:42 95 H 03/14/25 19:37 99 03/14/25 19:37 86 03/14/25 19:37 86 03/14/25 19:37 125/64 03/14/25 19:32 100 03/14/25 19:32 89 03/14/25 19:27 98 03/14/25 19:27 98 H 03/14/25 19:22 100 03/14/25 19:22 93 H 03/14/25 19:22 119/58 L 03/14/25 19:17 99 03/14/25 19:17 90 03/14/25 19:15 03/14/25 19:12 100 03/14/25 19:12 100 H 03/14/25 19:10 18 03/14/25 19:10 36.7 C 18 03/14/25 19:07 100 03/14/25 19:07 90 03/14/25 19:06 97 H 03/14/25 19:06 126/64 03/14/25 19:02 100 03/14/25 19:02 99 H 03/14/25 19:02 119/61 03/14/25 18:58 82 03/14/25 18:58 125/58 L 03/14/25 18:57 100 03/14/25 18:57 85 03/14/25 18:54 86 03/14/25 18:54 133/60 03/14/25 18:52 99 03/14/25 18:52 99 H 03/14/25 18:51 106 H 03/14/25 18:51 91/51 L 03/14/25 18:49 90 03/14/25 18:49 107/51 L 03/14/25 18:47 100 03/14/25 18:47 92 H 03/14/25 18:46 85 03/14/25 18:46 115/55 L 03/14/25 18:45 99 H 03/14/25 18:45 102/56 L 03/14/25 18:43 103 H 03/14/25 18:43 97/53 L 03/14/25 18:42 100 03/14/25 18:42 101 H 03/14/25 18:41 108 H 03/14/25 18:41 93/50 L 03/14/25 18:40 20 03/14/25 18:40 36.8 C 20 03/14/25 18:39 118 H 03/14/25 18:39 100/54 L 03/14/25 18:37 100 03/14/25 18:37 104 H 03/14/25 18:37 106 H 03/14/25 18:37 103/54 L 03/14/25 18:35 75 03/14/25 18:35 109/59 L 03/14/25 18:33 88 03/14/25 18:33 95/55 L 03/14/25 18:32 100 03/14/25 18:32 90 03/14/25 18:31 87 03/14/25 18:31 105/55 L 03/14/25 18:29 95 H 03/14/25 18:29 95/49 L 03/14/25 18:27 100 03/14/25 18:27 98 H 03/14/25 18:27 93 H 03/14/25 18:27 96/50 L 03/14/25 18:25 121 H 03/14/25 18:25 92/50 L 03/14/25 18:24 113 H 03/14/25 18:24 107/54 L 03/14/25 18:22 100 03/14/25 18:22 95 H 03/14/25 18:22 120/62 03/14/25 18:20 94 H 03/14/25 18:20 82/43 L 03/14/25 18:19 86 03/14/25 18:19 79/41 L 03/14/25 18:18 82 03/14/25 18:18 78/41 L 03/14/25 18:17 100 03/14/25 18:17 83 03/14/25 18:14 84 03/14/25 18:14 94/52 L 03/14/25 18:13 88 03/14/25 18:13 98/49 L 03/14/25 18:12 100 03/14/25 18:12 86 03/14/25 18:12 104/51 L 03/14/25 18:08 94 H 03/14/25 18:08 102/47 L 03/14/25 18:07 100 03/14/25 18:07 93 H 03/14/25 18:07 96 H 03/14/25 18:07 102/55 L 03/14/25 18:05 94 H 03/14/25 18:05 106/55 L 03/14/25 18:03 107 H 03/14/25 18:03 110/54 L 03/14/25 18:02 100 03/14/25 18:02 104 H 03/14/25 18:01 93 H 03/14/25 18:01 129/67 03/14/25 17:59 96 H 03/14/25 17:59 137/65 03/14/25 17:57 100 03/14/25 17:57 100 H 03/14/25 17:57 100 H 03/14/25 17:57 136/81 03/14/25 17:55 90 03/14/25 17:55 134/84 O2 Del Method 03/15/25 04:40 Room Air 03/15/25 02:00 03/15/25 02:00 Room Air 03/15/25 01:45 Room Air 03/15/25 01:45 03/15/25 01:44 03/15/25 01:39 03/15/25 01:35 03/15/25 01:34 03/15/25 01:29 03/15/25 01:25 03/15/25 01:24 03/15/25 01:19 03/15/25 01:15 Room Air 03/15/25 01:15 03/15/25 01:14 03/15/25 01:09 03/15/25 01:05 03/15/25 01:04 03/15/25 00:59 03/15/25 00:55 03/15/25 00:54 03/15/25 00:49 03/15/25 00:45 Room Air 03/15/25 00:45 Room Air 03/15/25 00:45 03/15/25 00:44 03/15/25 00:39 03/15/25 00:35 Room Air 03/15/25 00:35 03/15/25 00:34 03/15/25 00:29 03/15/25 00:28 03/15/25 00:25 Room Air 03/15/25 00:25 Room Air 03/15/25 00:24 03/15/25 00:19 03/15/25 00:15 Room Air 03/15/25 00:15 03/15/25 00:14 03/15/25 00:09 03/15/25 00:05 Room Air 03/15/25 00:05 03/15/25 00:04 03/14/25 23:59 03/14/25 23:59 03/14/25 23:55 Room Air 03/14/25 23:55 03/14/25 23:55 03/14/25 23:54 03/14/25 23:54 03/14/25 23:49 03/14/25 23:49 03/14/25 23:45 Room Air 03/14/25 23:45 03/14/25 23:45 03/14/25 23:44 03/14/25 23:44 03/14/25 22:42 03/14/25 22:42 03/14/25 22:32 03/14/25 22:32 03/14/25 22:27 03/14/25 22:27 03/14/25 22:23 03/14/25 22:23 03/14/25 22:22 03/14/25 22:22 03/14/25 22:17 03/14/25 22:17 03/14/25 22:12 03/14/25 22:12 03/14/25 22:07 03/14/25 22:07 03/14/25 22:07 03/14/25 22:07 03/14/25 22:02 03/14/25 22:02 03/14/25 21:57 03/14/25 21:57 03/14/25 21:52 03/14/25 21:52 03/14/25 21:47 03/14/25 21:47 03/14/25 21:42 03/14/25 21:42 03/14/25 21:37 03/14/25 21:37 03/14/25 21:37 03/14/25 21:37 03/14/25 21:32 03/14/25 21:32 03/14/25 21:27 03/14/25 21:27 03/14/25 21:22 03/14/25 21:22 03/14/25 21:17 03/14/25 21:17 03/14/25 21:12 03/14/25 21:12 03/14/25 21:12 03/14/25 21:12 03/14/25 21:07 03/14/25 21:07 03/14/25 21:07 03/14/25 21:02 03/14/25 21:02 03/14/25 20:57 03/14/25 20:57 03/14/25 20:52 03/14/25 20:52 03/14/25 20:52 03/14/25 20:52 03/14/25 20:47 03/14/25 20:47 03/14/25 20:42 03/14/25 20:42 03/14/25 20:38 03/14/25 20:38 03/14/25 20:37 03/14/25 20:37 03/14/25 20:32 03/14/25 20:32 03/14/25 20:27 03/14/25 20:27 03/14/25 20:23 03/14/25 20:23 03/14/25 20:22 03/14/25 20:22 03/14/25 20:17 03/14/25 20:17 03/14/25 20:15 03/14/25 20:15 03/14/25 20:12 03/14/25 20:12 03/14/25 20:09 03/14/25 20:09 03/14/25 20:07 03/14/25 20:07 03/14/25 20:02 03/14/25 20:02 03/14/25 19:57 03/14/25 19:57 03/14/25 19:52 03/14/25 19:52 03/14/25 19:52 03/14/25 19:52 03/14/25 19:47 03/14/25 19:47 03/14/25 19:42 03/14/25 19:42 03/14/25 19:37 03/14/25 19:37 03/14/25 19:37 03/14/25 19:37 03/14/25 19:32 03/14/25 19:32 03/14/25 19:27 03/14/25 19:27 03/14/25 19:22 03/14/25 19:22 03/14/25 19:22 03/14/25 19:17 03/14/25 19:17 03/14/25 19:15 Room Air 03/14/25 19:12 03/14/25 19:12 03/14/25 19:10 03/14/25 19:10 03/14/25 19:07 03/14/25 19:07 03/14/25 19:06 03/14/25 19:06 03/14/25 19:02 03/14/25 19:02 03/14/25 19:02 03/14/25 18:58 03/14/25 18:58 03/14/25 18:57 03/14/25 18:57 03/14/25 18:54 03/14/25 18:54 03/14/25 18:52 03/14/25 18:52 03/14/25 18:51 03/14/25 18:51 03/14/25 18:49 03/14/25 18:49 03/14/25 18:47 03/14/25 18:47 03/14/25 18:46 03/14/25 18:46 03/14/25 18:45 03/14/25 18:45 03/14/25 18:43 03/14/25 18:43 03/14/25 18:42 03/14/25 18:42 03/14/25 18:41 03/14/25 18:41 03/14/25 18:40 03/14/25 18:40 03/14/25 18:39 03/14/25 18:39 03/14/25 18:37 03/14/25 18:37 03/14/25 18:37 03/14/25 18:37 03/14/25 18:35 03/14/25 18:35 03/14/25 18:33 03/14/25 18:33 03/14/25 18:32 03/14/25 18:32 03/14/25 18:31 03/14/25 18:31 03/14/25 18:29 03/14/25 18:29 03/14/25 18:27 03/14/25 18:27 03/14/25 18:27 03/14/25 18:27 03/14/25 18:25 03/14/25 18:25 03/14/25 18:24 03/14/25 18:24 03/14/25 18:22 03/14/25 18:22 03/14/25 18:22 03/14/25 18:20 03/14/25 18:20 03/14/25 18:19 03/14/25 18:19 03/14/25 18:18 03/14/25 18:18 03/14/25 18:17 03/14/25 18:17 03/14/25 18:14 03/14/25 18:14 03/14/25 18:13 03/14/25 18:13 03/14/25 18:12 03/14/25 18:12 03/14/25 18:12 03/14/25 18:08 03/14/25 18:08 03/14/25 18:07 03/14/25 18:07 03/14/25 18:07 03/14/25 18:07 03/14/25 18:05 03/14/25 18:05 03/14/25 18:03 03/14/25 18:03 03/14/25 18:02 03/14/25 18:02 03/14/25 18:01 03/14/25 18:01 03/14/25 17:59 03/14/25 17:59 03/14/25 17:57 03/14/25 17:57 03/14/25 17:57 03/14/25 17:57 03/14/25 17:55 03/14/25 17:55
[2025-03-15 09:11] LABS: Hematocrit (blood only) 31.8 % (37.0-47.0); Hemoglobin 10.3 g/dl (12.0-16.0); Immature Granulocytes # (auto) 0.13 K/uL (0.01-0.20); Immature Granulocytes % (auto) 0.6 %; Mean Corpuscular Hemoglobin 28.0 pg (25.0-34.0); Mean Corpuscular Volume 86.4 fL (80.0-100.0); Platelet Count 222 K/uL (130-400); RDW Standard Deviation 47.3 fL (36.4-46.3); Red Blood Count 3.68 M/uL (4.20-5.40); White Blood Count 21.35 K/ul (4.8-10.8)
[2025-03-15] MEDS: PRENATAL VITAMIN 1 TAB PO SCH (12:00)
[2025-03-15] MEDS: DOCUSATE SODIUM 100 MG CAP PO SCH (12:08)
[2025-03-15] MEDS: SIMETHICONE 80 MG CHEW PO SCH (12:09)
[2025-03-15] MEDS: FERROUS SULFATE 325 MG TAB PO SCH (12:09)
[2025-03-15] MEDS ORDERED: LACTATED RINGER'S 1,000 ML IV SCH (16:30)
[2025-03-15] MEDS ORDERED: HYDROmorphone INJ 0.5 MG/0.5 ML SYR IV PRN (17:07)
[2025-03-15] MEDS ORDERED: diphenhydrAMINE 50 MG/ML VIAL IV PRN (17:07)
[2025-03-15] MEDS ORDERED: diphenhydrAMINE Capsule 25 MG CAP PO PRN (17:07)
[2025-03-15] MEDS ORDERED: ONDANSETRON INJ 2 MG/ML 2 ML VIAL IV PRN (17:07)
[2025-03-15] MEDS ORDERED: PROMETHAZINE 12.5 MG/50.5 ML BAG IV PRN (17:07)
[2025-03-15] MEDS: IBUPROFEN 600 MG TAB PO SCH (23:37)
[2025-03-15] MEDS ORDERED: KETOROLAC 30 MG/ML VIAL IV PRN (23:45)
--- NOTE | 2025-03-16 05:42 | Obstetrical Progress Note ---
Date of Service March 16, 2025 Assessment & Plan (1) care and examination: Plan: Patient is currently stable. Will discharge today or tomorrow. (2) Group B streptococcal infection during : Plan: Patient stated she was positive with GBS. Ordered penicillin during labor Admission and Anticipated Discharge Date Admission Date: March 14, 2025 Supervising Physician Co-Signing Physician Notes Resident Physician Supervision Note: I was present with Dr. Sanchez during the history and exam. I discussed the case with the resident and agree with the findings and plan as documented in the note. Any exceptions or clarifications are listed here: [None] Documented By: Mook Barnett MD, FACOG Subjective 34 yo post- day 2 hours s/p [] Ambulation: has walked Voiding: Yes Passing Gas:: Yes Diet Tolerance:: has not eaten yet Feeding Type:: breast feeding Current Pain Level:improving Patient is tolerating diet now. Denies fevers/chills, BRADSHAW, CP/palp, SOB/wheeze/cough, breast pain/dschrg, N/V, calf tenderness Review of Systems Review of Systems: as per Subjective HPI Physical Exam Constitutional: WD/WN, vitals as above Respiratory: normal respiratory effort, lungs clear to auscultation Cardiovascular: Rate/Rhythm: regular rate and regular rhythm Heart Sounds: normal S1 and normal S2; no murmur Extremities: no calf tenderness and no edema Gastrointestinal (Abdomen): Percussion/Palpation: abdomen soft; abdomen nontender surgical incision is dry, clean, and intact. Uterus @ level of umbilicus Skin: no rashes, warm and dry Psychiatric: Eye Contact: good eye contact Speech: normal rate/rhythm/volume of speech Thought Process: linear/logical thought process Results & Data Vital Signs (Past 12 Hours) Vital Signs Temp Pulse Resp BP Pulse Ox O2 Del Method 03/15/25 23:30 36.6 C 97 H 16 114/69 97 Room Air 03/15/25 20:05 36.8 C 91 H 16 105/64 94 Room Air
[2025-03-16 06:50] LABS: Hematocrit (blood only) 32.2 % (37.0-47.0); Hemoglobin 10.3 g/dl (12.0-16.0)
[2025-03-16] MEDS: IBUPROFEN 600 MG TAB PO PRN (23:56)
[2025-03-17 00:20] VITALS: RESP 18; O2SAT 97
[2025-03-17] MEDS: ACETAMINOPHEN 325 MG TAB PO PRN (05:46)
--- NOTE | 2025-03-17 06:09 | Obstetrical Progress Note ---
Date of Service March 17, 2025 Assessment & Plan (1) care and examination: Plan: Patient is post status delivery and currently stable. Will discharge today. (2) Group B streptococcal infection during : Plan: Patient stated she was positive with GBS. Ordered penicillin during labor Admission and Anticipated Discharge Date Admission Date: March 14, 2025 Supervising Physician Co-Signing Physician Notes Resident Physician Supervision Note: I interviewed and examined the patient. Discussed with Dr. Sanchez and agree with findings and plan as documented in the note. Any exceptions or clarifications are listed here: Doing well. Plan d/c today. Instructions reviewed. Documented By: Vinita Celeste MD, FACOG Subjective 34 yo post- day 3 days s/p [] Ambulation: ambulating normally Voiding: Yes Passing Gas:: Yes Diet Tolerance:: Well Feeding Type:: breast feeding, a few supplementations with syringe Current Pain Level:improving. 5/10. Pain when standing up in her belly region and from her back. Her pain is well controlled with current medication regimen. Patient admits to numbness in her lower abdominal quadrants B/L. Denies fevers/chills, BRADSHAW, CP/palp, SOB/wheeze/cough, breast pain/dschrg, N/V, calf tenderness Review of Systems Review of Systems: as per Subjective HPI Physical Exam Constitutional: WD/WN, vitals as above Respiratory: normal respiratory effort, lungs clear to auscultation Cardiovascular: Rate/Rhythm: regular rate and regular rhythm Heart Sounds: normal S1 and normal S2; no murmur Extremities: no calf tenderness and no edema Gastrointestinal (Abdomen): Percussion/Palpation: abdomen soft; abdomen nontender Skin: no rashes, warm and dry Psychiatric: Eye Contact: good eye contact Speech: normal rate/rhythm/volume of speech Thought Process: linear/logical thought process Genitourinary: uterus @level of umbilicus. Incision is clean, dry, and intact. Results & Data Vital Signs (Past 12 Hours) Vital Signs Temp Pulse Resp BP Pulse Ox O2 Del Method 03/16/25 23:40 36.5 C 82 18 122/77 97 Room Air 03/16/25 19:55 36.6 C 83 20 117/81 98 Room Air Laboratory Results Lab Results 03/14/25 03/14/25 03/14/25 Range/Units 08:44 22:59 22:59 WBC 15.45 H (4.8-10.8) K/ul RBC 4.18 L (4.20-5.40) M/uL Hgb 12.1 (12.0-16.0) g/dl Hct 36.1 L (37.0-47.0) % MCV 86.4 (80.0-100.0) fL MCH 28.9 (25.0-34.0) pg MCHC 33.5 (32.0-36.0) g/dL RDW Std Deviation 47.0 H (36.4-46.3) fL RDW Coeff of Alfredo 14.8 H (11.5-14.5) % Plt Count 269 (130-400) K/uL MPV 9.6 (9.4-12.4) fL Immature Gran % (Auto) % Neut % (Auto) % Lymph % (Auto) % [place] % (Auto) % Eos % (Auto) % Baso % (Auto) % Neut # (Auto) (1.40-6.50) K/uL Lymph # (Auto) (1.20-3.40) K/uL [place] # (Auto) (0.11-0.59) K/uL Eos # (Auto) (0.00-0.50) K/uL Baso # (Auto) (0.00-0.20) K/uL Immature Gran # (Auto) (0.01-0.20) K/uL Cord ABG pH 7.18 (7.1-7.38) Cord ABG pCO2 70 (39.1-73.5) mmHg Cord ABG pO2 < 20 (4.1-31.7) mmHg Cord ABG HCO3 26 (19.7-28.5) mmol/L Cord ABG Base Excess -3.8 (-9-1.8) mEq/L Cord ABG O2 Sat TNP Cord VBG pH 7.32 (7.20-7.44) Cord VBG pCO2 48 (30.4-57.2) mmHg Cord VBG pO2 28 (14.1-43.3) mmHg Cord VBG HCO3 25 (18.4-26.8) mmol/L Cord VBG Base Excess -1.8 (-7.7-1.9) mEq/L Cord VBG O2 Sat < 60.0 (<68) % Blood Gas Comments A A Treponema pallidum Ab Negative (Negative) 03/15/25 03/16/25 Range/Units 08:16 05:59 WBC 21.35 H (4.8-10.8) K/ul RBC 3.68 L (4.20-5.40) M/uL Hgb 10.3 L 10.3 L (12.0-16.0) g/dl Hct 31.8 L 32.2 L (37.0-47.0) % MCV 86.4 (80.0-100.0) fL MCH 28.0 (25.0-34.0) pg MCHC 32.4 (32.0-36.0) g/dL RDW Std Deviation 47.3 H (36.4-46.3) fL RDW Coeff of Alfredo 15.0 H (11.5-14.5) % Plt Count 222 (130-400) K/uL MPV 9.7 (9.4-12.4) fL Immature Gran % (Auto) 0.6 % Neut % (Auto) 85.2 % Lymph % (Auto) 6.7 % [place] % (Auto) 7.4 % Eos % (Auto) 0.0 % Baso % (Auto) 0.1 % Neut # (Auto) 18.17 H (1.40-6.50) K/uL Lymph # (Auto) 1.44 (1.20-3.40) K/uL [place] # (Auto) 1.58 H (0.11-0.59) K/uL Eos # (Auto) 0.00 (0.00-0.50) K/uL Baso # (Auto) 0.03 (0.00-0.20) K/uL Immature Gran # (Auto) 0.13 (0.01-0.20) K/uL Cord ABG pH (7.1-7.38) Cord ABG pCO2 (39.1-73.5) mmHg Cord ABG pO2 (4.1-31.7) mmHg Cord ABG HCO3 (19.7-28.5) mmol/L Cord ABG Base Excess (-9-1.8) mEq/L Cord ABG O2 Sat Cord VBG pH (7.20-7.44) Cord VBG pCO2 (30.4-57.2) mmHg Cord VBG pO2 (14.1-43.3) mmHg Cord VBG HCO3 (18.4-26.8) mmol/L Cord VBG Base Excess (-7.7-1.9) mEq/L Cord VBG O2 Sat (<68) % Blood Gas Comments Treponema pallidum Ab (Negative)
[2025-03-17 08:45] VITALS: BP 132/71; PULSE 72; TEMP 97.9
== END 2025-03-17 14:49 | disposition home or self-care (01) | DRG 788 ==
LOC: 4S1 07:58 → 4E1 03-15 02:14